=== PATIENT | female | born 1975 | race Caucasian/White ===

== ENCOUNTER 2017-04-13 14:22 | Emergency (ER) | payer MEDICAID ==
[~2017-04-13] VITALS: Ht 157.5 cm; Wt 64.0 kg
[2017-04-13 14:24] VITALS: Ht 157.5 cm; Wt 64.0 kg
--- NOTE | 2017-04-13 15:12 | ERD ---
ER Documentation Chief Complaint Date/Time DATE: 04/13/17 TIME: 15:09 Chief Complaint pt bib self with c/o pelvic pain x 2 wks HPI Patient is a 41-year-old female with no past medical history who presents to the ED with right pelvic pain and dysuria on and off for 2 weeks. She states that she has had these symptoms in the past and states that it is similar to what she has experienced. She denies fever or chills. She denies abnormal vaginal bleeding or vaginal discharge. She states that her last normal menstrual period was 03/31/17. She states that she is in a monogamous relationship and denies a history of STDs in the past. Denies hematuria. Denies back pain. Denies abdominal pain, nausea, vomiting or diarrhea. Denies chest pain, cough, shortness of breath or difficulty breathing. Denies headache or dizziness. States that she took 1 dose of Keflex yesterday. No other medications. ROS All systems reviewed and are negative except as per history of present illness. Medications Home Meds Active Scripts Naproxen* (Naprosyn*) 500 Mg Tablet, 500 MG PO BID Y for PAIN AND/OR INFLAMMATION, #30 TAB Prov:MADHAVI BELTRAN PA-C 04/13/17 Nitrofurantoin Monohyd Macrocr* (Macrobid*) 100 Mg Capsr, 100 MG PO BID for 14 Days, CAP Prov:MADHAVI BELTRAN PA-C 04/13/17 Allergies Allergies: Coded Allergies: No Known Allergy (Unverified , 04/13/17) PMhx/Soc Medical and Surgical Hx: pt denies Medical Hx, pt denies Surgical Hx Hx Miscellaneous Medical Probl: Yes (Ovarian cyst) Hx Alcohol Use: No Hx Substance Use: No Hx Tobacco Use: No Smoking Status: Never smoker FmHx Family History: No coronary disease, No diabetes, No other Physical Exam Vitals Vital Signs Date Time Temp Pulse Resp B/P Pulse Ox O2 Delivery O2 Flow Rate FiO2 04/13/17 14:24 98.3 79 18 123/59 99 Physical Exam GENERAL: Well-developed, well-nourished female. Appears in no acute distress. HEAD: Normocephalic, atraumatic. EYES: Pupils are equally reactive bilaterally. EOMs grossly intact. No conjunctival erythema. ENT: Moist mucous membranes. No uvula deviation. No kissing tonsils. No exudates. NECK: Supple. No lymphadenopathy or thyromegaly. No meningismus. negative kernig. negative brudinski. LUNG: Clear to auscultation bilaterally. No rhonchi, wheezing, rales or coarse breath sounds. HEART: Regular rate and rhythm. No murmurs, rubs or gallops. ABDOMEN: No scars, ecchymosis or rashes noted. Soft, nontender, and nondistended. Positive bowel sounds in all four quadrants. No rebound tenderness , no guarding. (-) McBurneys point tenderness. No CVA tenderness. Tenderness to the right pelvic area and suprapubic. BACK: No midline tenderness. Extremities: Equal pulses bilaterally. No peripheral clubbing, cyanosis or edema. No unilateral leg swelling. NEUROLOGIC: Alert and oriented. Moving all four extremities. 5/5 strength in all extremities. Normal speech. Steady gait. SKIN: Normal color. Warm and dry. No rashes or lesions. Capillary refill < 2 seconds Results 24 hrs Laboratory Tests Test 04/13/17 16:52 Bedside Urine pH (LAB) 5.5 Bedside Urine Protein (LAB) 1+ Bedside Urine Glucose (UA) Negative Bedside Urine Ketones (LAB) Negative Bedside Urine Blood 2+ Bedside Urine Nitrite (LAB) Negative Bedside Urine Leukocyte Esterase (L 3+ Procedures/MDM ER COURSE: I kept the patient and/or family informed of laboratory and diagnostic imaging results throughout the emergency room course. LABORATORY STUDIES Urine dip shows 3+ leukocytes with no nitrites or hematuria. Negative test. IMAGING STUDIES [place] [id number] Radiology Main Line: [phone] DIAGNOSTIC IMAGING REPORT Patient: NEVILLE SANCHEZ : 1975 Age: 41 Sex: F MR #: [id number] DOS: 04/13/17 1458 Ordering MD: MADHAVI BELTRAN PA-C Location: [facility] Room/Bed: PROCEDURE: US Pelvis CLINICAL INDICATION: Pelvic pain. TECHNIQUE: Transabdominal and transvaginal sonographic evaluation of the pelvis was performed. COMPARISON: None. FINDINGS: Myometrium is heterogeneous in echotexture without fibroids. Endometrium is thickened without a focal abnormality. Normal flow to both ovaries. No adnexal mass. There is a dominant follicle within left ovary measuring up to 2 cm No free pelvic fluid. MEASUREMENTS: Uterus: 7.5 x 4.1 x 4.1 cm, retroverted. Endometrium: 1.3 cm. Right ovary size: 2.2 x 1.8 x 2.0 cm Left ovary size: 2.7 x 2.0 x 2.5 cm IMPRESSION: 1. Diffuse thickening of the endometrium, which may reflect secretory phase of menstrual cycle. 2. Dominant follicle within the left ovary without worrisome adnexal cyst or mass. RPTAT: EE .Jude Mahajan MD, MD Date Time Electronically viewed and signed by .Jude Mahajan MD, on 04/13/2017 16:11 .C/ CC: MADHAVI BELTRAN PA-C MEDICAL DECISION MAKING: This is a 41-year-old female who presents with right-sided pelvic pain and dysuria on and off 2 weeks. Vital signs were reviewed. Patient is afebrile. Patient is not hypoxic. Patient is not toxic or ill-appearing. Patient has a UTI. Low suspicion for ovarian torsion, PID, tuboovarian abscess, ectopic , bowel obstruction, pyelonephritis, appendicitis, cervicitis, septic , molar , HELLP syndrome, preeclampsia, eclampsia, placenta previa, placenta abruptia. Ultrasound is read by radiologist shows Diffuse thickening of the endometrium, which may reflect secretory phase of menstrual cycle. Dominant follicle within the left ovary without worrisome adnexal cyst or mass. DISCHARGE: At this time, patient is stable for discharge and outpatient management with no new complaints during the ER course. Patient was sent home with Ciro and Calin. Patient will be discharged home with instructions to recheck for new or worsening symptoms such as fever, nausea, weakness, LOC and to follow up with primary care in the next 1-2 days. Patient was advised to return to the ER for any new or worsening symptoms. Plan was discussed and patient and/or family understands and agrees. Home instructions were given. Departure Diagnosis: Primary Impression: UTI (urinary tract infection) Urinary tract infection type: acute cystitis Hematuria presence: without hematuria Qualified Code: N30.00 - Acute cystitis without hematuria Condition: Stable MADHAVI BELTRAN PA-C April 13, 2017 15:12
--- NOTE | 2017-04-13 16:06 | RADRPT ---
PROCEDURE: US Pelvis CLINICAL INDICATION: Pelvic pain. TECHNIQUE: Transabdominal and transvaginal sonographic evaluation of the pelvis was performed. COMPARISON: None. FINDINGS: Myometrium is heterogeneous in echotexture without fibroids. Endometrium is thickened without a focal abnormality. Normal flow to both ovaries. No adnexal mass. There is a dominant follicle within left ovary measu ring up to 2 cm No free pelvic fluid. MEASUREMENTS: Uterus: 7.5 x 4.1 x 4.1 cm, retroverted. Endometrium: 1.3 cm. Right ovary size: 2.2 x 1.8 x 2.0 cm Left ovary size: 2.7 x 2.0 x 2.5 cm IMPRESSION: 1. Diffuse thickening of the endometrium, which may reflect secretory phase of menstrual cycle. 2. Dominant follicle within the left ovary without worrisome adnexal cyst or mass. RPTAT: EE .Jude Mahajan MD, MD Date Time Electronically viewed and signed by .Jude Mahajan MD, on 04/13/2017 16:11 .C/
[2017-04-13 16:50] LABS: URINE BLOOD (Dip) POC 2+ (NEGATIVE)
[2017-04-13] MEDS ORDERED: NAPR-260 PO (16:55)
[2017-04-13] MEDS ORDERED: NITR-58 PO (16:55)
== END 2017-04-13 17:09 | disposition home or self-care (01) ==
LOC: FTE 14:22
DX: N30.00 Acute cystitis without hematuria (principal)
CPT/HCPCS: 76830; 76856; 81003; Z7502

== ENCOUNTER 2017-05-07 21:58 | Emergency (ER) | payer MEDICAID ==
[~2017-05-07] VITALS: Wt 60.0 kg
[~2017-05-07 21:58] MED LIST: NAPR-260 PO; NITR-58 PO
--- NOTE | 2017-05-07 22:49 | ERA ---
ER Documentation Chief Complaint Date/Time DATE: 05/07/17 TIME: 22:49 Chief Complaint dysuria. HPI The patient is a 41-year-old female, presenting to the ER because of painful urination, constipation for the last couple days.. She had similar symptoms previously about a month ago when she had a negative pelvic ultrasound and was treated for acute cystitis with macrobid. She is not getting much better. She denies fever, chills, neck pain, chest pain, dyspnea, abdominal pain, vomiting. She does not smoke nor drink Past medical/surgical history: None ROS All systems reviewed and are negative except as per history of present illness. Medications Home Meds Active Scripts Ibuprofen* (Motrin*) 600 Mg Tab, 600 MG PO Q6, #20 TAB Prov:JH SALCEDO MD 05/08/17 Sulfamethoxazole/Trimethoprim* (Bactrim Ds* Tablet) 1 Each Tablet, 1 TAB PO BID , #14 TAB Prov:JH SALCEDO MD 05/08/17 Naproxen* (Naprosyn*) 500 Mg Tablet, 500 MG PO BID Y for PAIN AND/OR INFLAMMATION, #30 TAB Prov:MADHAVI BELTRAN PA-C 04/13/17 Nitrofurantoin Monohyd Macrocr* (Macrobid*) 100 Mg Capsr, 100 MG PO BID for 14 Days, CAP Prov:MADHAVI BELTRAN PA-C 04/13/17 Allergies Allergies: Coded Allergies: No Known Allergy (Unverified , 04/13/17) PMhx/Soc Medical and Surgical Hx: pt denies Medical Hx, pt denies Surgical Hx History of Surgery: No Anesthesia Reaction: No Hx Neurological Disorder: No Hx Respiratory Disorders: No Hx Cardiac Disorders: No Hx Psychiatric Problems: No Hx Alcohol Use: No Hx Substance Use: No Hx Tobacco Use: No Smoking Status: Never smoker Physical Exam Vitals Vital Signs Date Time Temp Pulse Resp B/P Pulse Ox O2 Delivery O2 Flow Rate FiO2 05/07/17 22:08 98.4 78 20 121/70 98 Physical Exam Const: No acute distress. Head: Atraumatic. Eyes: Normal Conjunctiva. ENT: Normal External Ears, Nose and Mouth. Neck: Full range of motion. No meningismus. Resp: Clear to auscultation bilaterally. Cardio: Regular rate and rhythm. Abd: Soft, non distended, normal bowel sounds, non tender. Skin: No petechiae or rashes. Back: No midline or flank tenderness. Ext: No cyanosis, or edema. Neur: Awake and alert. No focal deficit Psych: Normal Mood and Affect. Results 24 hrs Laboratory Tests Test 05/08/17 02:03 Bedside Urine pH (LAB) 6.0 Bedside Urine Protein (LAB) Trace Bedside Urine Glucose (UA) Negative Bedside Urine Ketones (LAB) Negative Bedside Urine Blood Trace-intact Bedside Urine Nitrite (LAB) Negative Bedside Urine Leukocyte Esterase (L Trace Current Medications Medications (Trade) Dose Ordered Sig/Pat Route PRN Reason Start Time Stop Time Status Last Admin Dose Admin Trimethoprim/ Sulfamethoxazole (Bactrim (Ds)) 1 tab ONCE ONCE PO 05/08/17 02:30 05/08/17 02:30 DC 05/08/17 02:16 Ibuprofen (Motrin) 600 mg ONCE ONCE PO 05/08/17 02:30 05/08/17 02:30 DC 05/08/17 02:16 Procedures/MDM MEDICAL MAKING DECISION: The patient is a 41-year-old female, presenting with acute dysuria most likely due to acute cystitis. The differential diagnoses considered include but are not limited to PID, ovarian cyst, endometriosis, fibroids, appendicitis. Departure Diagnosis: Primary Impression: Dysuria Condition: Good Comments She was treated with Motrin and Bactrim DS in the ER She was discharged with Motrin and Bactrim DS I discussed the findings with the patient. I advised the patient to follow-up with the primary physician in about 1-2 days, sooner if needed and return if any concern. JH SALCEDO MD May 07, 2017 22:49
[2017-05-08 01:59] LABS: URINE BLOOD (Dip) POC Trace-intact (NEGATIVE)
[2017-05-08] MEDS ORDERED: SULF1TAB31 PO (02:10)
[2017-05-08] MEDS ORDERED: IBUP-1542 PO (02:10)
[2017-05-08] MEDS ORDERED: IBUPROFEN 600 MG TAB PO ONE (02:30)
[2017-05-08] MEDS ORDERED: TRIMETHOPRIM/SULFAMETHOX (DS) TAB PO ONE (02:30)
== END 2017-05-08 02:25 | disposition home or self-care (01) ==
LOC: FTE 21:58
DX: R30.0 Dysuria (principal); R10.2 Pelvic and perineal pain
CPT/HCPCS: 81003; Z7610; 99283

== ENCOUNTER 2017-05-24 21:53 | Emergency (ER) | payer MEDICAID ==
[~2017-05-24] VITALS: Wt 59.5 kg
[~2017-05-24 21:53] MED LIST changes: +IBUP-1542 PO; +SULF1TAB31 PO
[2017-05-24 23:27] LABS: URINE BLOOD (Dip) POC 2+ (NEGATIVE)
[2017-05-25 00:13] LABS: URINE BLOOD (Dip) POC 2+ (NEGATIVE)
[2017-05-25] MEDS ORDERED: NITR-58 PO (00:52)
[2017-05-25] MEDS ORDERED: SULF1TAB31 PO (00:52)
[2017-05-25] MEDS ORDERED: PHEN-537 PO (00:52)
[2017-05-25] MEDS ORDERED: TRAM50TA2 PO (00:52)
--- NOTE | 2017-05-25 00:58 | ERD ---
ER Documentation Chief Complaint Date/Time DATE: 05/25/17 TIME: 00:54 Chief Complaint DYSURIA X1WEEK HPI This 41-year-old female presents with 1 week of burning on urination and mild suprapubic pain. She has a history of recurrent UTIs for the last one being a month ago. At that time she was given Bactrim with complete resolution of symptoms after 2 days. Says that she is getting urinary tract infections her entire life. She has no fevers or chills. She currently does not have a primary care doctor. She has seen a shed boss who performed a Pap smear and she talked about this problem and they were not able to find any anatomical abnormality ROS All systems reviewed and are negative except as per history of present illness. Medications Home Meds Active Scripts Tramadol HCl (Tramadol HCl) 50 Mg Tablet, 50 MG PO Q6H Y for PAIN, #24 TAB Prov:QUINTON FERNANDEZ DO 05/25/17 Phenazopyridine Hcl* (Pyridium*) 100 Mg Tab, 100 MG PO TID, #8 TAB Prov:QUINTON FERNANDEZ DO 05/25/17 Sulfamethoxazole/Trimethoprim* (Bactrim Ds* Tablet) 1 Each Tablet, 1 TAB PO BID for 5 Days, TAB Prov:QUINTON FERNANDEZ DO 05/25/17 Nitrofurantoin Monohyd Macrocr* (Macrobid*) 100 Mg Capsr, 100 MG PO HS for 7 Days, CAP Prov:QUINTON FERNANDEZ DO 05/25/17 Ibuprofen* (Motrin*) 600 Mg Tab, 600 MG PO Q6, #20 TAB Prov:JH SALCEDO MD 05/08/17 Sulfamethoxazole/Trimethoprim* (Bactrim Ds* Tablet) 1 Each Tablet, 1 TAB PO BID , #14 TAB Prov:JH SALCEDO MD 05/08/17 Naproxen* (Naprosyn*) 500 Mg Tablet, 500 MG PO BID Y for PAIN AND/OR INFLAMMATION, #30 TAB Prov:MADHAVI BELTRAN PA-C 04/13/17 Nitrofurantoin Monohyd Macrocr* (Macrobid*) 100 Mg Capsr, 100 MG PO BID for 14 Days, CAP Prov:MADHAVI BELTRAN PA-C 04/13/17 Allergies Allergies: Coded Allergies: No Known Allergy (Unverified , 04/13/17) PMhx/Soc History of Surgery: No Anesthesia Reaction: No Hx Neurological Disorder: No Hx Respiratory Disorders: No Hx Cardiac Disorders: No Hx Psychiatric Problems: No Hx Alcohol Use: No Hx Substance Use: No Hx Tobacco Use: No Smoking Status: Never smoker Physical Exam Vitals Vital Signs Date Time Temp Pulse Resp B/P Pulse Ox O2 Delivery O2 Flow Rate FiO2 05/24/17 21:59 98.8 78 18 126/60 99 Physical Exam Const: [] No distress Head: Atraumatic Eyes: Normal Conjunctiva ENT: Normal External Ears, Nose and Mouth. Abd: Soft, very mild suprapubic tenderness without guarding or rebound, non distended. Normal bowel sounds Skin: No petechiae or rashes. Results 24 hrs Laboratory Tests Test 05/24/17 23:32 Bedside Urine pH (LAB) 7.0 Bedside Urine Protein (LAB) 2+ Bedside Urine Glucose (UA) Negative Bedside Urine Ketones (LAB) Negative Bedside Urine Blood 2+ Bedside Urine Nitrite (LAB) Positive Bedside Urine Leukocyte Esterase (L 2+ Procedures/MDM Recurrent UTI. This is a simple UTI but is complicated by its number of recurrences. We will discharge her with Macrobid for 7 days. Also performing a urine culture on the urine. Going to discharge with Pyridium as well as well as tramadol which she says helps for the pain. Primary care follow-up in 2-3 days I provided a list of clinics. I told her that she does need further outpatient follow-up to get to the bottom of her frequent UTIs. Departure Diagnosis: Primary Impression: Recurrent UTI (urinary tract infection) Condition: Stable Patient Instructions: Understanding Urinary Tract Infections (UTIs) Referrals: [facility] YOU HAVE RECEIVED A MEDICAL SCREENING EXAM AND THE RESULTS INDICATE THAT YOU DO NOT HAVE A CONDITION THAT REQUIRES URGENT TREATMENT IN THE EMERGENCY DEPARTMENT. FURTHER EVALUATION AND TREATMENT OF YOUR CONDITION CAN WAIT UNTIL YOU ARE SEEN IN YOUR DOCTORS OFFICE WITHIN THE NEXT 1-2 DAYS. IT IS YOUR RESPONSIBILITY TO MAKE AN APPOINTMENT FOR FOLOW-UP CARE. IF YOU HAVE A PRIMARY DOCTOR --you should call your primary doctor and schedule an appointment IF YOU DO NOT HAVE A PRIMARY DOCTOR YOU CAN CALL OUR PHYSICIAN REFERRAL HOTLINE AT IF YOU CAN NOT AFFORD TO SEE A PHYSICIAN YOU CAN CHOSE FROM THE FOLLOWING [facility] [address] [place] [facility] [address] [email or web address] [address] [facility] [address] [facility] [address] [facility]. [facility] [address] Additional Instructions: Llame al doctor MAANA y marty alberta BRITTANI PARA DENTRO DE 2-3 BAKER.Dgale a la secretaria que nosotros le instruimos hacer esta brittani.Avise o llame si lambert condicin se empeora antes de la brittani. Regresa aqui si peor o no mejor. QUINTON FERNANDEZ DO May 25, 2017 00:58
[2017-05-25 01:42] VITALS: BP 115/56; PULSE 63; RESP 18; TEMP 98.1
== END 2017-05-25 01:44 | disposition home or self-care (01) ==
LOC: FTE 21:53
DX: N39.0 Urinary tract infection, site not specified (principal)
CPT/HCPCS: 81003; Z7502; 99284

== ENCOUNTER 2018-05-17 10:33 | Emergency (ER) | END 2018-05-17 12:36 | disposition home or self-care (01) ==